=== PATIENT | female | born 1960 | race American Indian/Alaskan Native ===

== ENCOUNTER 2020-07-01 12:17 | Emergency (ER) | payer SELFPAY ==
[2020-07-01 13:08] VITALS: BP 141/83
--- NOTE | 2020-07-01 13:13 | Emergency Department Report ---
- General Chief complaint: Pain General Stated complaint: PAIN;HIDRADENITIS Time Seen by Provider: 07/01/20 13:03 Source: patient Mode of arrival: Ambulatory Limitations: No Limitations - History of Present Illness Initial comments: Patient is a 6-year-old female presents emergency room with complaints of worsening hidradenitis suppurativa to the right buttock. Patient states that she has had hidradenitis for multiple years. She states that in the last 3 weeks it has been worsening. She has states she has been using [id number] salves without much relief. She states that she does have a couple areas that without are open and draining. She states that she has not seen a male infertility specialist, general surgeon or primary care doctor for this complaint due to lack of insurance. She states that it has been multiple years since she has been on antibiotics. She has not had any recent procedures or I&D's. She denies any fever, nausea, vomiting, diarrhea, chills, rectal pain, abdominal pain. She denies any other past medical history. She denies medication allergies. - Related Data Previous Rx's Medication Instructions Recorded Last Taken Type Chlorhexidine Gluconate [Hibiclens] 15 ml TP DAILY #1 bottle 07/01/20 Unknown Rx Mupirocin [Bactroban 2% OINT] 1 applic TP TID #1 tube 07/01/20 Unknown Rx Naproxen [EC-Naprosyn] 500 mg PO BID PRN #14 tablet. 07/01/20 Unknown Rx Sulfamethoxazole/Trimethoprim 1 each PO BID 10 Days #20 tablet 07/01/20 Unknown Rx [Bactrim DS TAB] traMADoL [Ultram 50 MG tab] 50 mg PO Q6HR PRN #10 tablet 07/01/20 Unknown Rx Allergies Allergy/AdvReac Type Severity Reaction Status Date / Time No Known Allergies Allergy Unverified 07/01/20 12:49 Abscess Boil HPI - HPI Chief Complaint: Pain General Stated Complaint: PAIN;HIDRADENITIS Time Seen by Provider: 07/01/20 13:03 Home Medications: Previous Rx's Medication Instructions Recorded Last Taken Type Chlorhexidine Gluconate [Hibiclens] 15 ml TP DAILY #1 bottle 07/01/20 Unknown Rx Mupirocin [Bactroban 2% OINT] 1 applic TP TID #1 tube 07/01/20 Unknown Rx Naproxen [EC-Naprosyn] 500 mg PO BID PRN #14 tablet. 07/01/20 Unknown Rx Sulfamethoxazole/Trimethoprim 1 each PO BID 10 Days #20 tablet 07/01/20 Unknown Rx [Bactrim DS TAB] traMADoL [Ultram 50 MG tab] 50 mg PO Q6HR PRN #10 tablet 07/01/20 Unknown Rx Allergies/Adverse Reactions: Allergies Allergy/AdvReac Type Severity Reaction Status Date / Time No Known Allergies Allergy Unverified 07/01/20 12:49 ED Review of Systems ROS: Stated complaint: PAIN;HIDRADENITIS Other details as noted in HPI Comment: All other systems reviewed and negative ED Past Medical Hx - Past Medical History Previous Medical History?: Yes Additional medical history: Hidrenitis - Medications Home Medications: Home Medications Medication Instructions Recorded Confirmed Last Taken Type Chlorhexidine Gluconate [Hibiclens] 15 ml TP DAILY #1 bottle 07/01/20 Unknown Rx Mupirocin [Bactroban 2% OINT] 1 applic TP TID #1 tube 07/01/20 Unknown Rx Naproxen [EC-Naprosyn] 500 mg PO BID PRN #14 tablet. 07/01/20 Unknown Rx Sulfamethoxazole/Trimethoprim 1 each PO BID 10 Days #20 tablet 07/01/20 Unknown Rx [Bactrim DS TAB] traMADoL [Ultram 50 MG tab] 50 mg PO Q6HR PRN #10 tablet 07/01/20 Unknown Rx ED Physical Exam - General Limitations: No Limitations General appearance: alert, in no apparent distress - Head Head exam: Present: atraumatic, normocephalic - Eye Eye exam: Present: normal appearance - ENT ENT exam: Present: mucous membranes moist - Respiratory Respiratory exam: Absent: respiratory distress, accessory muscle use - Neurological Exam Neurological exam: Present: alert, oriented X3 - Psychiatric Psychiatric exam: Present: normal affect, normal mood - Skin Skin exam: Present: warm, dry, other (there is hidradenitis present diffusely to the right buttock, there is a few areas of small amount of purulent drainage, no obvious fluctuance masses, mild erythema, no signficant increased warmth, no tracking of the erythema, no involvement of the rectal region or perineum, health promotion officer: ODALIS moran) ED Course Vital Signs 07/01/20 12:52 Temperature 98.2 F Pulse Rate 99 H Respiratory 20 Rate Blood Pressure 141/83 O2 Sat by Pulse 100 Oximetry ED Medical Decision Making - Medical Decision Making Patient is a 6-year-old female presents emergency room with complaints of worsening hidradenitis suppurativa to the right buttock. Patient states that she has had hidradenitis for multiple years. She states that in the last 3 weeks it has been worsening. She has states she has been using [id number] salves without much relief. She states that she does have a couple areas that without are open and draining. She states that she has not seen a male infertility specialist, general surgeon or primary care doctor for this complaint due to lack of insurance. She states that it has been multiple years since she has been on antibiotics. She has not had any recent procedures or I&D's. She denies any fever, nausea, vomiting, diarrhea, chills, rectal pain, abdominal pain. She denies any other past medical history. She denies medication allergies. VSS. on exam:there is hidradenitis present diffusely to the right buttock, there is a few areas of small amount of purulent drainage, no obvious fluctuance masses, mild erythema, no signficant increased warmth, no tracking of the erythema, no involvement of the rectal region or perineum, health promotion officer: ODALIS moran. no signs of drainable abscess or significant cellulitis at this time requiring drainage or IV abx. pt given prescription for bactrim, hibiclens, tramadol, naproxen, and mupirocin ointment. advised pt Please use medication as prescribed. Please do not drive or operate machinery while taking severe pain medication. Follow-up with your primary care doctor in the next 3 days for reexamination. Return to emergency room immediately for any new or worsening symptoms as discussed. Critical care attestation.: If time is entered above; I have spent that time in minutes in the direct care of this critically ill patient, excluding procedure time. ED Disposition Clinical Impression: Hidradenitis suppurativa Disposition: DC-01 TO HOME OR SELFCARE Is pt being admited?: No Does the pt Need Aspirin: No Condition: Stable Instructions: Hidradenitis Suppurativa Additional Instructions: Please use medication as prescribed. Please do not drive or operate machinery while taking severe pain medication. Follow-up with your primary care doctor in the next 3 days for reexamination. Return to emergency room immediately for any new or worsening symptoms as discussed. Prescriptions: Sulfamethoxazole/Trimethoprim [Bactrim DS TAB] 1 each PO BID 10 Days #20 tablet Mupirocin [Bactroban 2% OINT] 1 applic TP TID #1 tube Naproxen [EC-Naprosyn] 500 mg PO BID PRN #14 tablet. PRN Reason: pain Chlorhexidine Gluconate [Hibiclens] 15 ml TP DAILY #1 bottle traMADoL [Ultram 50 MG tab] 50 mg PO Q6HR PRN #10 tablet PRN Reason: Pain , Severe (7-10) Referrals: KJ REEDER MD [Staff Physician] - 2-3 Days [facility] [Provider Group] - 2-3 Days [facility] [Outside] - 2-3 Days [facility], [LAB/CONTRACT] - 2-3 Days Time of Disposition: 13:11 Print Language: MALAYSIAN
== END 2020-07-01 13:36 | disposition home or self-care (01) ==
LOC: ED 12:17
DX: L73.2 Hidradenitis suppurativa (principal); Z79.899 Other long term (current) drug therapy
CPT/HCPCS: 99281